=== PATIENT | male | born 1955 | race Two or more races ===

== ENCOUNTER → 2016-08-11 | Day surgery (SDC) | payer OTHER ==
[~2016-08-11] MED LIST: ASPIRIN EC81 M1 PO; ATORVASTATIN CA80 MG PO; INSULIN; METFORMIN HCL500 M1 PO; VITAMIN D3
--- NOTE | ~2016-08-11 | OR ---
Unit #: [id number] #: [id number] Patient: KENDALL ALMEIDA [id number] [id number] [id number] MR#: [id number] NAME: KENDALL ALMEIDA ROOM: Date of Procedure: 08/11/2016 Admission Date: 08/11/2016 Surgeon: Jeremy Mueller M.D. : 1955 Attending Physician: Jeremy Mueller M.D. Primary Care Physician: [facility]. OPERATIVE REPORT JOB NOTE: VERIFY ADT. VERIFY CC AT THE END OF THE REPORT. PROCEDURE PERFORMED Colonoscopy with snare polypectomy. INDICATIONS FOR PROCEDURE A 60-year-old gentleman with history of polyps in the past. MEDICATIONS Monitored anesthesia. POSTOPERATIVE FINDINGS 1. Three small polyps, 5 to 6 mm in the rectum, snared and sent for histopathology. 2. Good prep. PLAN Repeat colonoscopy in 3 to 5 years. DESCRIPTION OF PROCEDURE The patient was explained of the procedure, risks, and benefits along with the risks and benefits of anesthesia. He was brought to the endoscopy room. Propofol anesthesia was given. Rectal exam was done, which was normal. Colonoscope was lubricated, passed up the rectum, advanced under direct vision all the way to the cecum. Cecum was identified by ileocecal valve and appendiceal orifice. At this point, I started to pull the scope out carefully looking. Three small polyps in the rectum were snared and sent for histopathology. Rest of the exam was normal. When I retroflexed in the rectum, small hemorrhoids noted. Gently, the scope was pulled out. He tolerated it well. Dictated by... Jeff Murray/princess TD: 08/11/2016 11:24 JOB #: [id number] Unit #: [id number] #: [id number] Patient: KENDALL ALMEIDA OPERATIVE REPORT Page 1 of 1 X Jeremy Mueller MD PROCEDURE OPERATIVE NOTE
== END | disposition home or self-care (01) ==
LOC: COPS 08:22
DX: Z12.11 Encounter for screening for malignant neoplasm of colon (principal); D12.8 Benign neoplasm of rectum; K64.9 Unspecified hemorrhoids; E11.9 Type 2 diabetes mellitus without complications; Z86.010 Personal history of colon polyps; Z79.4 Long term (current) use of insulin; Z79.82 Long term (current) use of aspirin; Z79.899 Other long term (current) drug therapy
CPT/HCPCS: 82947; 88305